=== PATIENT | female | born 1975 | race Caucasian/White ===

== ENCOUNTER 2016-04-01 07:46 | Emergency (ER) | payer SELFPAY ==
[~2016-04-01] VITALS: Ht 162.6 cm; Wt 114.5 kg
[~2016-04-01 07:46] MED LIST: ACET325T33 PO; IBUP-1542 PO; LORA-186 PO; ONDA4TAB35 PO; PEN500 PO
[2016-04-01 07:49] VITALS: Ht 162.6 cm; Wt 114.5 kg
[2016-04-01] MEDS ORDERED: KETOROLAC 60 MG INJ IM STA (08:14)
--- NOTE | 2016-04-01 08:29 | ERD ---
ER Documentation Chief Complaint Date/Time DATE: 04/01/16 TIME: 08:23 Chief Complaint lower back pain,worsened today. HPI This is a 40-year-old female presenting to the emergency department complaining of left thoracic and lumbar back pain for 2 days which has worsened today when she got up from bed. Patient states that there was no trauma however she was doing laundry 2 days ago when the pain started. Patient rates the pain as 10 out of 10. She states that she has difficulty sitting down. Patient states that she took Tylenol this morning without any relief. She denies any urinary symptoms, hematuria or fevers. She denies any general numbness, bladder or bowel incontinence. ROS All systems reviewed and are negative except as per history of present illness. Medications Home Meds Active Scripts Cyclobenzaprine Hcl* (Cyclobenzaprine Hcl*) 10 Mg Tablet, 10 MG PO TID, #15 TAB Prov:LA NENA CONRAD PA-C 04/01/16 Naproxen* (Naprosyn*) 500 Mg Tablet, 500 MG PO BID Y for PAIN AND/OR INFLAMMATION, #30 TAB Prov:LA NENA CONRAD PA-C 04/01/16 Acetaminophen* (Tylenol*) 325 Mg Tablet, 2 TAB PO Q6 Y for PAIN AND OR ELEVATED TEMP, #30 TAB Prov:LA NENA CONRAD PA-C 07/28/15 Loratadine* (Claritin*) 10 Mg Tablet, 10 MG PO DAILY, #30 TAB Prov:LA NENA CONRAD PA-C 07/28/15 Ondansetron Hcl* (Zofran* ODT) 4 mg -ODT Tab.disper, 4 MG PO Q6 Y for NAUSEA AND /OR VOMITING, #14 TAB Prov:LA NENA CONRADC 07/28/15 Ibuprofen* (Motrin*) 600 Mg Tab, 600 MG PO Q6H Y for PAIN AND OR ELEVATED TEMP, #30 Prov:HELLEN HINKLE NP 12/28/14 Reported Medications Penicillin V Potassium* (Penicillin V K*) 500 Mg Tab, PO EVERY 6 HRS 11/19/12 Allergies Allergies: Coded Allergies: No Known Drug Allergies (Verified Allergy, Unknown, 12/28/14) PMhx/Soc History of Surgery: Yes () Anesthesia Reaction: No Hx Neurological Disorder: No Hx Respiratory Disorders: No Hx Cardiac Disorders: No Hx Psychiatric Problems: No Hx Miscellaneous Medical Probl: No Hx Alcohol Use: Yes (occasional) Hx Substance Use: No Hx Tobacco Use: No Physical Exam Vitals Vital Signs Date Time Temp Pulse Resp B/P Pulse Ox O2 Delivery O2 Flow Rate FiO2 04/01/16 07:49 98.5 88 18 121/76 98 Physical Exam GENERAL: WD/WN, in no apparent distress, non-toxic appearing HENT: NC/AT EYES: Conjunctiva normal NECK: Supple PULM: Normal labored breathing CV: Good capillary refill GI: Non-distended, no guarding BACK: no deformities noted, normal spinal curvature, TTP on thoracic and lumbar lumbar muscular region, non-tender on spine midline EXT: No clubbing, cyanosis, or edema NEURO: Moves on all fours, sensation intact, normal gait SKIN: intact PSYCH: Normal mood Results 24 hrs Laboratory Tests Test 04/01/16 10:02 Bedside Urine Blood Negative Bedside Urine Glucose (UA) Negative Bedside Urine Ketones (LAB) Negative Bedside Urine Leukocyte Esterase (L Negative Bedside Urine Nitrite (LAB) Negative Bedside Urine Protein (LAB) Negative Bedside Urine pH (LAB) 6.0 Current Medications Medications (Trade) Dose Ordered Sig/Rakan Route PRN Reason Start Time Stop Time Status Last Admin Dose Admin Diazepam (Valium) 10 mg ONCE ONCE PO 04/01/16 08:30 04/01/16 08:31 DC 04/01/16 08:20 Ketorolac Tromethamine (Toradol) 60 mg ONCE STAT IM 04/01/16 08:14 04/01/16 08:16 DC 04/01/16 08:20 Acetaminophen/ Hydrocodone Bitart ([place] (5/325)) 1 tab ONCE ONCE PO 04/01/16 10:00 04/01/16 10:01 DC 04/01/16 10:03 Procedures/MDM This is a 40-year-old female obese presents to the ER with thoracic lumbar back pain, this appears to be musculoskeletal in origin. Patient is neurovascularly intact. In the ED 60 mg IM Toradol was given along with Valium 10 mg for muscle relaxation. Patient continues to have pain therefore [place] 5/ 325mg was given. An x-ray showed the patient had bilateral L5 pars intra- articular fractures, I discussed with the patient that she needs to follow-up with her primary care physician to get a referral to see an orthopedist. Lumbar XRAY: 1. Bilateral L5 pars interarticularis fractures are identified with approximately 13 mm of 4 translation of L5 on S1. 2. Disk space narrowing at L5-S1. Urine dipstick was unremarkable, urine test negative.. ow suspicion for spinal abscess, cauda equina syndrome due to history physical examination. Prescriptions naproxen and Flexeril was given to patient, discussed to follow- up with her primary care physician for further management management, discussed to return to the ED if not improving as expected or follow-up with a primary care physician. Patient understood and agreed with this plan. Departure Diagnosis: Primary Impression: Back pain Back pain location: low back pain Chronicity: acute Back pain laterality: left Sciatica presence: without sciatica Qualified Code: M54.5 - Acute left- sided low back pain without sciatica Condition: Stable LA NENA CONRAD PA-C Apr 01, 2016 08:29
[2016-04-01] MEDS ORDERED: DIAZEPAM 5 MG TAB PO ONE (08:30)
[2016-04-01] MEDS ORDERED: NAPR-260 PO (08:48)
[2016-04-01] MEDS ORDERED: CYCL-319 PO (08:48)
[2016-04-01 10:00] LABS: URINE BLOOD (Dip) POC Negative (NEGATIVE)
[2016-04-01] MEDS ORDERED: HYDROCODONE/APAP (5/325) TAB PO ONE (10:00)
--- NOTE | 2016-04-01 11:13 | RADRPT ---
PROCEDURE: XR Lumbar Spine. CLINICAL INDICATION: Back pain. TECHNIQUE: AP, lateral and cone-down lateral view of the lumbar spine were obtained. COMPARISON: No. FINDINGS: There are 5 lumbar vertebra. There is grade 1, near grade 2 anterolisthesis of L5 on S1 with bilate ral fractures of the L5 pars interarticularis. There is disk space narrowing at L5-S1. The other i ntervertebral disk spaces are normal. Neural canal and nerve root foramina are unremarkable. There are osteophytes in the lower thoracic spine. IMPRESSION: 1. Bilateral L5 pars interarticularis fractures are identified with approximately 13 mm of 4 transl ation of L5 on S1. 2. Disk space narrowing at L5-S1. RPTAT:AAJJ Physician Mikel Date Time Electronically viewed and signed by Amarjit Gutierrez Physician on 04/01/2016 11:13 JUANA/
[2016-04-01 11:45] VITALS: BP 131/81; PULSE 67; RESP 16
== END 2016-04-01 11:47 | disposition home or self-care (01) ==
LOC: FTE 07:46
DX: M54.5 Low back pain (principal)
CPT/HCPCS: 72100; 81003; 96372; 99284; J1885

== ENCOUNTER 2016-04-05 15:09 | Emergency (ER) | payer MEDICAID ==
[~2016-04-05] VITALS: Wt 79.0 kg
[~2016-04-05 15:09] MED LIST changes: +CYCL-319 PO; +NAPR-260 PO
[2016-04-05] MEDS ORDERED: ONDANSETRON (ODT) 4 MG TAB ODT STA (16:26)
[2016-04-05] MEDS ORDERED: HYDR-902 PO (16:27)
[2016-04-05] MEDS ORDERED: DOCU-144 PO (16:27)
[2016-04-05] MEDS ORDERED: HYDROCODONE/APAP (10/325) TAB PO ONE (16:30)
--- NOTE | 2016-04-05 16:36 | ERD ---
ER Documentation Chief Complaint Date/Time DATE: 04/05/16 TIME: 16:34 Chief Complaint BACK PAIN X X 3 DAYS HPI Patient is a 40-year-old female with no medical problems who presents with back pain. She said that she is still having back pain which started on April 01. She had an x-ray done on that day when she came to the ER was found to have back fracture. She has been taking Naprosyn. She is ambulatory. She has no incontinence and no fevers. The pain is left-sided without radiation. There is no midline tenderness to palpation. She does feel constipated and says that she has not had a bowel movement since Thursday. She does not currently have a primary doctor. Upon review of old medical records this is the patient's 10th visit to the ER since 2011. ROS All systems reviewed and are negative except as per history of present illness. Medications Home Meds Active Scripts Docusate Sodium* (Colace*) 100 Mg Capsule, 100 MG PO TID, #30 CAP Prov:DARINEL MACHADO MD 04/05/16 Hydrocodone/Acetaminophen ([place] 10-325 Tablet) 1 Each Tablet, 1 TAB PO Q6H Y for PAIN, #7 TAB Prov:DARINEL MACHADO MD 04/05/16 Cyclobenzaprine Hcl* (Cyclobenzaprine Hcl*) 10 Mg Tablet, 10 MG PO TID, #15 TAB Prov:LA NENA CONRAD PA-C 04/01/16 Naproxen* (Naprosyn*) 500 Mg Tablet, 500 MG PO BID Y for PAIN AND/OR INFLAMMATION, #30 TAB Prov:LA NENA CONRAD PA-C 04/01/16 Acetaminophen* (Tylenol*) 325 Mg Tablet, 2 TAB PO Q6 Y for PAIN AND OR ELEVATED TEMP, #30 TAB Prov:LA NENA CONRAD PA-C 07/28/15 Loratadine* (Claritin*) 10 Mg Tablet, 10 MG PO DAILY, #30 TAB Prov:LA NENA CONRAD PA-C 07/28/15 Ondansetron Hcl* (Zofran* ODT) 4 mg -ODT Tab.disper, 4 MG PO Q6 Y for NAUSEA AND /OR VOMITING, #14 TAB Prov:LA NENA CONRADC 07/28/15 Ibuprofen* (Motrin*) 600 Mg Tab, 600 MG PO Q6H Y for PAIN AND OR ELEVATED TEMP, #30 Prov:HELLEN HINKLE [employer] 12/28/14 Reported Medications Penicillin V Potassium* (Penicillin V K*) 500 Mg Tab, PO EVERY 6 HRS 11/19/12 Allergies Allergies: Coded Allergies: No Known Drug Allergies (Verified Allergy, Unknown, 12/28/14) PMhx/Soc Medical and Surgical Hx: pt denies Medical Hx History of Surgery: Yes () Anesthesia Reaction: No Hx Neurological Disorder: No Hx Respiratory Disorders: No Hx Cardiac Disorders: No Hx Psychiatric Problems: No Hx Miscellaneous Medical Probl: No Hx Alcohol Use: Yes (occasional) Hx Substance Use: No Hx Tobacco Use: No Smoking Status: Never smoker FmHx Family History: diabetes Physical Exam Vitals Vital Signs Date Time Temp Pulse Resp B/P Pulse Ox O2 Delivery O2 Flow Rate FiO2 04/05/16 15:16 98.0 65 20 141/86 99 Physical Exam Const: Moderate distress secondary to pain Head: Atraumatic Eyes: Normal Conjunctiva ENT: Normal External Ears, Nose and Mouth. Neck: Full range of motion..~ No meningismus. Resp: Clear to auscultation bilaterally Cardio: Regular rate and rhythm, no murmurs Abd: Soft, non tender, non distended. Normal bowel sounds Skin: No petechiae or rashes Back: Left lower back pain, no midline tenderness to palpation, no deformity or step-off noted Ext: No cyanosis, or edema Neur: Awake and alert, strength 5 out of 5 in the lower extremities, no saddle anesthesia, no incontinence Psych: Normal Mood and Affect Results 24 hrs Current Medications Medications (Trade) Dose Ordered Sig/Rakan Route PRN Reason Start Time Stop Time Status Last Admin Dose Admin Acetaminophen/ Hydrocodone Bitart ([place] (10/325)) 1 tab ONCE ONCE PO 04/05/16 16:30 04/05/16 16:31 DC 04/05/16 16:30 Ondansetron HCl (Zofran Odt) 4 mg ONCE STAT ODT 04/05/16 16:26 04/05/16 16:27 DC 04/05/16 16:29 Procedures/MDM Patient is a 40-year-old female presents with acute back pain from stable back fracture. There is no sign of neurologic involvement at this time and I doubt cauda equina syndrome, epidural abscess, or epidural hematoma. I believe outpatient management is appropriate. The patient has only been taking Naprosyn and cyclobenzaprine so I will give her a prescription for [place]. However I am concerned about her constipation and so I will give a prescription for Colace for stool softening as well. The patient can follow-up with a primary doctor within 24-48 hours. I will give her information for the local clinics. She can return sooner for any worsening symptoms. Departure Diagnosis: Primary Impression: Back fracture Encounter type: subsequent encounter Fracture of vertebra location: lumbar Lumbar vertebra fracture level: unspecified lumbar vertebra Fracture type: closed Fracture morphology: unspecified fracture morphology Fracture healing : with routine healing Qualified Code: S32.009D - Closed fracture of lumbar vertebra with routine healing, unspecified fracture morphology, unspecified lumbar vertebral level, subsequent encounter Condition: Fair Patient Instructions: Back Fracture (Compression Fracture) [facility]errals[facility] Usted se ang hecho un examen mdico de control que le indica que no est en ayad condicin que requiera tratamiento urgente en el Departamento de Emergencia. Un estudio ms profundo y el tratamiento de lehman condicin pueden esperar sin ningn riesgo hasta que usted sea atendida/o en el consultorio de lehman mdico o ayad cl patricia. Es responsabilidad suya arreglar ayad estrella para el seguimiento del kyra. MANEJO DE CONDICIONES NO URGENTES EN EL FUTURO 1) Si usted tiene un mdico de atencin primaria: Usted debera llamar a lehman mdico de atencin primaria antes de venir al departamento de emergencia. Despus de las horas de consultorio, lehman doctor o lehman asociado/a est disponible por telfono. El mdico o enfermero de checo en el servicio telefnico puede asesorarle por kp medio para atender el problema, o kyra contrario se puede programar ayad estrella. 2) Si usted no tiene un mdico de atencin primaria: Llame al mdico o clnica de referencia que aparece abajo kenroy las horas de consultorio para hacer ayad estrella para que le vean. CLINICAS: [facility] [phone] [facility] [phone] [facility] [phone] [place] [phone] [place] [phone] [place] [id number] [phone] Additional Instructions: Llame al doctor MAANA y anna marie ayad ESTRELLA PARA DENTRO DE 2-3 MANNING.Dgale a la secretaria que nosotros le instruimos hacer esta estrella.Avise o llame si lehman condicin se empeora antes de la estrella. Regresa aqui si peor o no mejor. DARINEL MACHADO MD Apr 05, 2016 16:36
== END 2016-04-05 16:38 | disposition home or self-care (01) ==
LOC: FTE 15:09
DX: S32.009D Unspecified fracture of unspecified lumbar vertebra, subsequent encounter for fracture with routine healing (principal); X58.XXXD Exposure to other specified factors, subsequent encounter
CPT/HCPCS: Z7502; Z7610; 99283